=== PATIENT | male | born 1980 | race Caucasian/White ===

== ENCOUNTER 2022-06-18 20:54 | Inpatient (IN) | payer BC ==
[2022-06-18] MEDS ORDERED: Lisinopril 20 MG Tab PO SCH (21:30)
[2022-06-18] MEDS ORDERED: cloNIDine 0.1 MG Tab PO ONE (21:31)
[2022-06-18] MEDS ORDERED: Nicotine 21 MG/24 Hr Patch TRDERM SCH (21:45)
[2022-06-18 22:55] LABS: CHLORIDE,CL 98 mmol/L (98-107); SODIUM,NA 139 mmol/L (136-145)
[2022-06-18 22:56] LABS: ESTIMATED GFR 111 mL/min (>=60)
[2022-06-18] MEDS ORDERED: Ondansetron 4 MG Tab.DIS PO PRN (23:29)
[2022-06-18] MEDS ORDERED: Acetaminophen 325 MG Tab PO PRN (23:29)
[2022-06-18] MEDS ORDERED: Polyethylene Glycol 3350 Powder 17 GM Packet PO PRN (23:29)
[2022-06-18] MEDS ORDERED: LORazepam 1 MG Tab PO PRN (23:30)
[2022-06-18] MEDS ORDERED: Chlorthalidone 25 MG Tab PO ONE (23:31)
[2022-06-18] MEDS ORDERED: Potassium Chloride 20 MEQ Tab.ER PO ONE (23:32)
[2022-06-18] MEDS ORDERED: Sodium Chloride 0.9% 10 ML Syringe FLUSH PRN (23:33)
[2022-06-18] MEDS: Lactated Ringers 1,000 ML IV ONE (23:55)
[2022-06-19] MEDS: Lactated Ringers 1,000 ML IV ONE (00:23)
[2022-06-19 05:57] VITALS: PULSE 103
[2022-06-19 06:22] LABS: BARBITURATE SCREEN,URINE NEGATIVE (NEGATIVE); BENZODIAZEPINES SCREEN,URINE POSITIVE (NEGATIVE); EDDP,URINE SCREEN NEGATIVE (NEGATIVE); TCA SCREEN,URINE NEGATIVE (NEGATIVE); THC SCREEN,URINE 50 NG/ML NEGATIVE (NEGATIVE)
[2022-06-19 06:39] LABS: BUPRENORPHINE SCREEN,URINE NEGATIVE (NEGATIVE)
[2022-06-19] MEDS ORDERED: Lisinopril 20 MG Tab PO SCH ×2 (08:00→09:45)
[2022-06-19 08:09] VITALS: BP 154/87
[2022-06-19] MEDS ORDERED: Chlorthalidone 25 MG Tab PO ONE (23:31)
== END 2022-06-19 09:38 | disposition left against medical advice (07) | DRG 756 ==
LOC: LL.ED 20:54 → LL.MS 21:35
PROVIDERS: ADMIT Hospitalist; ATTEND Emergency Medicine
DX: R45.851 Suicidal ideations (principal); I16.0 Hypertensive urgency; F17.210 Nicotine dependence, cigarettes, uncomplicated; H54.7 Unspecified visual loss; I10 Essential (primary) hypertension; K21.9 Gastro-esophageal reflux disease without esophagitis; Z20.822 Contact with and (suspected) exposure to COVID-19; M19.90 Unspecified osteoarthritis, unspecified site; M54.9 Dorsalgia, unspecified; G89.29 Other chronic pain; F41.9 Anxiety disorder, unspecified; F32.A Depression, unspecified; Z79.899 Other long term (current) drug therapy
CPT/HCPCS: 36415; 73080-RT; 80053; 80305-QW; 80307; 83735; 85025; 99285; A9270-GY; J7120; U0002

== ENCOUNTER 2022-08-11 17:34 | Emergency (ER) | payer BC ==
[2022-08-11 17:59] LABS: BASOPHILS ABSOLUTE AUTO 0.04 K/uL (0.00-0.20); BASOPHILS PERCENT AUTO 0.6 % (0.0-2.0); EOSINOPHILS ABSOLUTE AUTO 0.03 K/uL (0.00-0.50); EOSINOPHILS PERCENT AUTO 0.5 % (0.0-5.0); HEMATOCRIT 44.6 % (39.0-49.0); HEMOGLOBIN 15.4 g/dL (13.1-16.8); LYMPHOCYTES ABSOLUTE AUTO 2.92 K/uL (0.50-3.50); LYMPHOCYTES PERCENT AUTO 44.2 % (10.0-50.0); MEAN CORPUSCULAR HEMOGLOBIN 32.2 pg (28.2-33.3); MEAN CORPUSCULAR HGB CONC 34.5 g/dL (31.7-36.0); MEAN CORPUSCULAR VOLUME 93.3 fL (84.0-98.0); MONOCYTES ABSOLUTE AUTO 0.35 K/uL (0.00-1.00); MONOCYTES PERCENT AUTO 5.3 % (2.0-14.0); NEUTROPHILS ABSOLUTE AUTO 3.26 K/uL (1.40-7.00); NEUTROPHILS PERCENT AUTO 49.4 % (45.0-80.0); PLATELET COUNT,PLT 237 K/uL (150-350); RED BLOOD CELL COUNT 4.78 M/uL (4.33-5.41); WHITE BLOOD CELL COUNT,WBC 6.6 K/uL (4.0-10.2)
[2022-08-11] MEDS: Sodium Chloride 0.9% 1,000 ML IV ONE ×2 (18:04→19:19)
[2022-08-11] MEDS: LORazepam 2 MG/ML SDV IVPUSH ONE (18:07)
[2022-08-11 18:24] LABS: ALANINE AMINOTRANSFERASE,ALT 38 U/L (12-78); ALBUMIN 4.1 g/dL (3.4-5.0); ALKALINE PHOSPHATASE 86 IU/L (46-116); ASPARTATE AMNIOTRANSFERASE,AST 51 U/L (15-37); BILIRUBIN TOTAL 0.5 mg/dL (0.2-1.0); BLOOD UREA NITROGEN,BUN 6 mg/dL (7-18); CARBON DIOXIDE,CO2 29.6 mmol/L (21.0-32.0); CHLORIDE,CL 104 mmol/L (98-107); CREATININE 0.87 mg/dL (0.51-1.17); ETHANOL BLOOD MEDICAL 0.421 g/dL (0.000-0.080); GLUCOSE RANDOM 164 mg/dL (70-99); PROTEIN TOTAL,TP 8.4 g/dL (6.4-8.2); SODIUM,NA 144 mmol/L (136-145)
[2022-08-11 18:25] LABS: ANION GAP 13.4 meq/L (7-15); ESTIMATED GFR 110 mL/min (>=60)
[2022-08-11] MEDS: Potassium Chloride 20 MEQ Tab.ER PO ONE ×3 (19:02→22:29)
[2022-08-11] MEDS: Sodium Chloride 0.9% 10 ML Syringe FLUSH PRN (19:20)
[2022-08-11] MEDS: Ondansetron 4 MG/2 ML SDV IVPUSH ONE (19:20)
[2022-08-11] MEDS: Lactated Ringers 1,000 ML IV SCH (20:40)
[2022-08-11] MEDS: LORazepam 0.5 MG Tab PO ONE (21:02)
[2022-08-11 23:07] VITALS: BP 132/87; PULSE 71
== END 2022-08-11 23:05 | disposition left against medical advice (07) ==
LOC: LL.ED 17:34
DX: F10.10 Alcohol abuse, uncomplicated (principal); M54.2 Cervicalgia; I10 Essential (primary) hypertension; Z79.899 Other long term (current) drug therapy
CPT/HCPCS: 36415; 70450; 72125; 80053; 80307; 83605; 83735; 85025; 96361; 96374; 96375; 99284; 99284-25; A9270-GY; J2060; J2405; J3490; J7030; J7120

== ENCOUNTER 2023-04-05 10:16 | Emergency (ER) | payer SELFPAY ==
[2023-04-05] MEDS ORDERED: Naloxone 0.4 MG/ML SDV IV ONE (10:20)
[2023-04-05] MEDS ORDERED: 50% Dextrose in Water 50 ML Syringe IV ONE (10:21)
[2023-04-05] MEDS ORDERED: EPINEPHrine 1:10,000 1 MG/10 ML Syringe IVPUSH ONE ×3 (10:23→10:31)
[2023-04-05] MEDS ORDERED: Sodium Bicarbonate 8.4% 50 MEQ/50 ML Syringe IV ONE (10:26)
[2023-04-05] MEDS ORDERED: Sodium Chloride 0.9% 10 ML Syringe FLUSH ONE (10:30)
== END 2023-04-05 12:50 | disposition expired ==
LOC: LL.ED 10:16
DX: F10.929 Alcohol use, unspecified with intoxication, unspecified (principal); I46.9 Cardiac arrest, cause unspecified
CPT/HCPCS: 92950; 99285-25; J0171; J2310; J3490